=== PATIENT | female | born 1985 | race Caucasian/White ===

== ENCOUNTER 2016-03-07 21:54 | Observation (INO) ==
[2016-03-07 22:51] LABS: Bilirubin,Urine Negative (Negative); Blood,Urine Negative (Negative); Clarity,Urine Cloudy (Clear); Color,Urine Yellow (Yellow); Glucose,Urine (UA) 250 mg/dL (Normal); Ketones,Urine Negative (Negative); Leukocyte Esterase,Urine Trace (Negative); Nitrite,Urine Negative (Negative); Protein,Urine Negative (Neg-Trace); Specific Gravity,Urine 1.016 (1.010-1.025); Urobilinogen,Urine Normal (Normal)
[2016-03-07 23:09] LABS: Squamous Epithelial Cell,Urine Many per lpf (None-Few)
[2016-03-07 23:10] LABS: Bacteria,Urine Moderate per hpf (None-Few)
--- NOTE | 2016-03-12 18:29 | OB/GYN Progress Note ---
Date of Encounter: 03/07/16 Time of Encounter: 22:10 - Assessment and Plan (1) 34 weeks gestation of Status: Acute (2) Abdominal pain affecting Status: Acute Pt presented with c/o possible uc's and abd pain. No uc's on tocos and no cervical change. Subjective - Subjective Principal diagnosis: cramping. Interval history: Pt is at 34w1d with c/o cramps, no vb and no lof. Objective - Exam FHR: category 1 Cervical dilation: cl Cervix effacement: 50 station: -2 - Labs Labs: Abnormal lab results Urine Clarity Cloudy (Clear) A 03/07/16 22:25 Urine Glucose (UA) 250 mg/dL (Normal) H 03/07/16 22:25 Ur Leukocyte Esterase Trace (Negative) H 03/07/16 22:25 Urine Microscopic WBC 3-5 per hpf (0-3) H 03/07/16 22:25 Ur Squamous Epith Cells Many per lpf (None-Few) H 03/07/16 22:25 Urine Bacteria Moderate per hpf (None-Few) H 03/07/16 22:25 Ur Culture Indicated? YES (NO) A 03/07/16 22:25
== END 2016-03-07 23:55 | disposition home or self-care (01) ==
LOC: 1NENULAB
PROVIDERS: ADMIT Obstetrics & Gynecology; ATTEND Obstetrics & Gynecology

== ENCOUNTER 2018-06-05 09:30 | Inpatient (IN) ==
[2018-06-05] MEDS ORDERED: Ringers Solution, Lactated 1,000 ML IVC SCH (10:45)
[2018-06-05] MEDS ORDERED: Metoclopramide 10 MG/2 ML VIAL IVP PRN (10:45)
[2018-06-05] MEDS ORDERED: Oxytocin 20 units/ LR 1000 mL 20 UNIT/1,000 ML BAG IVC SCH ×2 (10:45→19:34)
[2018-06-05] MEDS ORDERED: Naloxone 0.4 MG/ML INJ IVP PRN (10:45)
[2018-06-05] MEDS ORDERED: Ondansetron 4 MG/2 ML VIAL IVP PRN (10:45)
[2018-06-05] MEDS ORDERED: *HR* Nalbuphine 10 MG/ML AMPUL IVP PRN (10:45)
[2018-06-05] MEDS ORDERED: Famotidine 20 MG/2 ML VIAL IVP PRN (10:45)
--- NOTE | 2018-06-05 11:00 | OB/GYN History & Physical ---
Date of Encounter: 06/05/18 Time of Encounter: 10:53 Assessment and Plan (1) 39 weeks gestation of Current visit: Yes Status: Acute Admit to Labor and Delivery GBS- Start Pitocin for labor induction Consider AROM for augmentation May have nubain/epidiural per request Anticipate vaginal delivery POC per consult with Dr. Mason History of Present Illness Chief complaint: IOL HPI: Ms. Gomes is a 32 year old female at 39 6/7 weeks gestation presents to L&D for elective induction of labor after this AM. She was sent from the office by Dr Mason. Reports positive movement. Denies ctx, bleeding, leaking of fluid, [place], or vision changes. Uncomplicated to date. H/o fibromyalgia. H/o placental abruption in 2005 at 122 weeks. Labs to date: GBS- O+ RPR NR HIV NR Rubella immune Varicella immune Hep B NR Past Med Surg Social Fam HX - Past Medical History Medical history: migraine Additional medical history: Pulmonary valve stenosis. Psychiatric history: anxiety, depression, PTSD - Past Surgical History Surgical History: other Additional surgical history: 3 eye surgeries as a child. D and C 2005. Broken nose - Social History Smoking Status: Never smoker Smokeless Tobacco Status: No Alcohol use: none Drug use: none - Family History Father Adopted: [place]: Denies any family history Living Status: Still Living Hx Family Cardiac Disorders: Yes (hypertension) Mother Adopted: [place]: Denies family history Family Member Ethnicity: Non- Hx Family Cardiac Disorders: Yes Hx Family Cancer: Yes (skin cancer) Obstetrical History - Pregnancies : 9 Para: 6 Term: 5 : 1 Ab's: 2 Livin Medications and Allergies RX: Gabapentin [Neurontin] 800 mg TID 03/29/17 [History] Tramadol HCl 50 mg PO BID 06/05/18 [History] Allergy/AdvReac Type Severity Reaction Status Date / Time Amoxicillin Allergy Hives Verified 06/17/17 10:33 Review of System OB All systems PM: reviewed and no additional remarkable complaints except as stated Exam - Constitutional Constitutional: well developed, well nourished, no acute distress, average body habitus - HEENT HEENT: Normocephaly, Mucus Membranes Moist - Neck Neck exam: full ROM, normal inspection - Lungs Respiratory exam: CTAB - Cardiovascular Cardiovascular exam: RRR, +S1, +S2 - Breasts Breast: bilateral: normal - Abdomen Abdomen: Present: bowel sounds normal, gravid, non tender - Extremities Extremities exam: full ROM, normal inspection, radial pulses palpable and sym metrical Deep Tendon Reflex Grade: 2+ Normal - Vagina Vagina: Present: normal moisture - Cervix Dilation: 3 (3-4 per sve in office) Effacement: 80 Station: -3 - Uterus Uterus exam: Present: normal size, normal contour - Anus/Rectum Anus/Rectum: Present: normal perianal skin Results Result Diagrams: 06/05/18 10:30 All other labs normal. - VTE Reasons for not Prescribing Prophylaxis: Treatment not Indicated - Low risk for VTE
[2018-06-05 11:04] LABS: Basophils % 0.2 %; Eosinophils % 0.3 %; Hematocrit 30.9 % (35.3-44.9); Hemoglobin 9.9 g/dL (11.5-15.4); Immature Granulocytes % 0.3 % (0-4); Lymphocytes # 1.1 K/mcL (0.6-4.6); Lymphocytes % 18.3 %; Mean Corpuscular Volume 74.8 fL (83.0-100.0); Mean Platelet Volume 9.5 fL (9.4-12.4); Monocytes # 0.4 K/mcL (0.0-1.3); Monocytes % 5.7 %; Neutrophils # 4.7 K/mcL (1.6-8.9); Platelet Count 234 K/mcL (140-400); Red Blood Count 4.13 M/mcL (3.82-4.97); Red Cell Distribution Width 16.7 % (11.5-14.5); Segmented Neutrophils % 75.2 %
[2018-06-05 11:20] LABS: Amphetamine Screen,Urine Negative ng/mL (Cutoff=1000); Barbiturate Screen,Urine Negative ng/mL (Cutoff=200); Benzodiazepines Screen,Urine Negative ng/mL (Cutoff=200); Cannabinoid Screen,Urine Negative ng/mL (Cutoff = 50); Cocaine Screen,Urine Negative ng/mL (Cutoff= 300); Opiate Screen,Urine Negative ng/mL (Cutoff=300); Phencyclidine Screen,Urine Negative ng/mL (Cutoff=25)
--- NOTE | 2018-06-05 13:14 | Anesthesia Evaluation PreOp ---
Date of Encounter: 06/05/18 Time of Encounter: 13:11 - Past History Planned Operation: victorina Cardiac History: Other (States that she has been followed at [facility] for a murmur from her pulmonary valve. Unbale to detect at this tiime.) Pulmonary History: Denies Any Significant HX LOADING INSPECTOR History: Denies Any Significant HX Other Medical History: Denies Any Significant HX Anesthesia History: No Prior Anesthetic Complications, Past Anesthesia (eye, nose, d&C) : Yes (39+6 ) Test: Positive Alcohol Use: none Drug use: none Medications and Allergies Gabapentin [Neurontin] 800 mg TID 03/29/17 [History] Tramadol HCl 50 mg PO BID 06/05/18 [History] Allergy/AdvReac Type Severity Reaction Status Date / Time Amoxicillin Allergy Hives Verified 06/17/17 10:33 - Meds/Allergy Pre-op Review Medications Reviewed: Yes Allergies Reviewed: Yes Beta Blockers on Current Med List: No Anesthesia Results - Labs 06/05/18 10:30 Anesthesia Exam O2 Sat Height 1.75 m Height 1.75 m Weight 91.9 kg Weight 91.9 kg Height: 69 Weight: 91 - HEENT Pupil (Motor): Pupils equal Mallampati: II Teeth: Normal Oral Opening: Greater than 3 - LOADING INSPECTOR LOC: Oriented LOADING INSPECTOR Motor: Normal RUE, Normal LUE, Normal RLE, Normal LLE, Normal Face LOADING INSPECTOR Sensory: Normal: RUE, LUE, RLE, LLE, Face - Cardiac Rhythm: Regular Murmur: None JVD: No Carotid Bruit: No - Pulmonary Breath Sounds: bilateral Clear Respiratory Effort: Symmetrical Anesthesia Assess/Plan ASA Score: 2 Level of consciousness: Cooperative Anesthetic Plan: Epidural Monitoring Plan: Standard Monitors
[2018-06-05] MEDS ORDERED: *HR* FentaNYL (PF) 100 MCG/2 ML VIAL ONE (13:49)
[2018-06-05] MEDS ORDERED: *HR* Ropivacaine/PF 0.2% 20 ML VIAL ONE (13:49)
[2018-06-05] MEDS ORDERED: Epidural Premix (fent/bupiv) 110 ML EP ONE (13:49)
[2018-06-05] MEDS ORDERED: Lidocaine -MPF 1% 5 ML AMPUL ONE (13:49)
[2018-06-05] MEDS ORDERED: Epidural Premix (fent/bupiv) 110 ML EP SCH (14:15)
--- NOTE | 2018-06-05 14:18 | Anesthesia Procedures ---
Addendum entered and electronically signed by Trey Murry CRNA 06/05/18 20:39: Delivery Date: 06/05/18 Delivery Time: 16:25 Addendum entered and electronically signed by Trey Murry CRNA 06/05/18 14:20: procedure time [id number] Original Note: Date of Encounter: 06/05/18 Time of Encounter: 14:16 Procedures: Anesthesia - Epidural/Spinal Patient ID/Chart reviewed: Yes Patient examined: Yes OB Eval: Gestational age: 39 OB Eval: : 8 OB Eval: Hx Para: 6 OB Eval: Contractions: Non-stressed pattern Consent Obtained: Yes Supplemental Oxygen: None/Room Air Site Prep: Aseptic Technique Patient position: upright Local Anesthetic: Lidocaine 1% Touhy Needle Gauge: 18 Touhy Needle Depth (cm): 6 Catheter Depth at Skin (cm): 12 Test Dose (1.5% Lido + Epi): Volume given (mls): 3 Test Dose Result: Negative Loading Dose: Fentanyl (mcg): 100 Loading Dose: Other: 6ml 0.2% ropivicaine Loading Dose Administered: Thru Touhy Needle Infusion Med: 0.125% Bupivacaine w/ 2 mcg/ml Fentanyl Infusion Rate (mls/hr): [address]: Tegaderm Interspace Used: L3-L4
[2018-06-05] MEDS ORDERED: EPHEDrine 50 MG/ML VIAL ONE (14:30)
--- NOTE | 2018-06-05 14:47 | OB Labor Progress Note ---
Date of Encounter: 06/05/18 Time of Encounter: 14:44 Labor Progress Note - Subjective Subjective: Patient resting comfortably after epidural placement - Vital Signs Vital Signs: VSS - Cervix Cervix: 5-6/70/-2 BBOW - Heart Tones Heart Tones: 135 Cat 1 tracing - [place]: Contractions every 2-3 minutes - Interventions Interventions: AROM for small amount of clear fluid; patient and fetus tolerated well. - Plan Plan: Continue routine labor management GBS negative Titrate pitocin for adequate labor contractions Anticipate vaginal delivery POC per consult with Dr Mason
--- NOTE | 2018-06-05 16:52 | OB/GYN Procedure Note ---
Delivery - Delivery Date: 06/05/18 Provider: Maya Mason Intrapartum events: none Delivery induction: oxytocin Delivery augmentation: rupture of membranes Delivery monitor: external FHT Anesthesia: epidural Quantitated Blood Loss: 200 - (s) Infant A Delivery Date: 06/05/18 Delivery Time: 16:25 Presentation: vertex Position: WILDER Route of delivery: Gender: Male Viability: Viable at 1 minute: 9 at 5 mins: 9 Shoulder Dystocia: not encountered Specimens collected: cord blood Placenta: spontaneous Cord: nuchal cord, nuchal reduced - Repair Episiotomy: none Laceration Description: Labial - Complications Delivery complications: none Delivery comments: Spontaneous vaginal delivery of a viable male with left occiput posterior presentation over an intact perineum without difficulty. Nuchal cord 1. cord reduced without difficulty. Apgars were 9 and 9 at one and 5 minutes respectively. Placenta was delivered spontaneously. Cord blood was collected. Small right labial laceration was noted. 2 interrupted sutures were placed. No complications. Uterus was explored. Minimal bleeding noted. estimated blood loss 200 mL. Baby was placed on maternal abdomen for kangaroo care. Sponge lap needle and all instrument counts were assured to be correct after the procedure.
[2018-06-05] MEDS ORDERED: Oxytocin 20 units/ LR 1000 mL 20 UNIT/1,000 ML BAG IVC ONE (19:34)
[2018-06-05] MEDS: traMADol 50 MG TABLET PO PRN (20:24)
[2018-06-05] MEDS: Ibuprofen 600 MG TABLET PO PRN (21:29)
[2018-06-06] MEDS: Acetaminophen 325 MG TABLET PO PRN ×3 (02:10→20:12)
[2018-06-06] MEDS: Ibuprofen 600 MG TABLET PO PRN ×3 (04:04→15:57)
[2018-06-06] MEDS: Prenatal Vit/FA 1 EACH TABLET PO SCH (07:40)
--- NOTE | 2018-06-06 09:12 | OB/GYN Progress Note ---
Date of Encounter: 06/06/18 Time of Encounter: 09:09 - Assessment and Plan (1) Vaginal delivery Current Visit: Yes Status: Acute Patient offered to be discharged to guest and declined Continue routine care Anticipate discharge tomorrow (2) anemia Current Visit: Yes Status: Acute Continue iron supplementation daily (3) Breast feeding status of mother Current Visit: Yes Status: Acute when necessary Subjective - Subjective Principal diagnosis: S/P Interval history: Feeling well. Out of bed without dizziness. Some perineal discomfort-using ice pack. Cramping minimal, using ibuprofen. every 2-3 hours. Some nipple soreness. Voiding without difficulty. Passing flatus, no BM yet. Tolerating regular diet. Patient reports: appetite normal, voiding normally, pain well controlled, ambulating normally [place]: doing well, nursing well Objective - Latest Vital Signs Latest vital signs: Vital Signs Temp Pulse Resp BP Pulse Ox 06/06/18 07:59 97.4 F L 98 18 123/85 98 06/06/18 03:45 97.9 F 89 16 132/82 97 06/06/18 00:30 98.4 F 98 16 118/72 98 06/05/18 22:22 97.8 F 107 16 136/78 97 06/05/18 21:00 98.4 F 104 16 137/78 99 06/05/18 19:50 98.1 F 81 16 138/77 99 Intake and Output 06/05/18 06/06/18 06/06/18 23:59 07:59 15:59 Intake Total 850 / 850 700 / 700 Output Total 750 / 750 750 / 750 Balance 100 / 100 -50 / -50 Intake: Oral 850 / 850 700 / 700 Output: Urine 750 / 750 750 / 750 Other: Weight 87.679 kg Patient Weight 06/06/18 23:59 Weight 87.679 kg - Exam Lungs: bilateral: normal Chest: Normal S1, Normal S2 Extremities: Present: normal Abdomen: Present: normal appearance, soft Uterus: Present: firm Uterus Position: At Umbilicus, Midline - Labs Labs: Laboratory Results - last 24 hr 06/05/18 06/05/18 10:30 10:30 WBC 6.2 RBC 4.13 Hgb 9.9 L Hct 30.9 L MCV 74.8 L MCH 24.0 L MCHC 32.0 RDW 16.7 H Plt Count 234 MPV 9.5 Immature Gran % 0.3 Seg Neutrophils % 75.2 Lymphocytes % 18.3 Monocytes % 5.7 Eosinophils % 0.3 Basophils % 0.2 Neutrophils # 4.7 Lymphocytes # 1.1 Monocytes # 0.4 Eosinophils # 0.0 Basophils # 0.0 Urine Opiates Screen Negative Ur Barbiturates Screen Negative Ur Phencyclidine Scrn Negative Ur Amphetamines Screen Negative U Benzodiazepines Scrn Negative Urine Cocaine Screen Negative U Marijuana (THC) Screen Negative Ur Drug Screen Interp See Below
[2018-06-06 09:42] LABS: Hematocrit 27.5 % (35.3-44.9); Mean Corpuscular HGB Conc 32.7 g/dL (31.6-35.5); Mean Corpuscular Volume 73.3 fL (83.0-100.0); Mean Platelet Volume 9.6 fL (9.4-12.4); Platelet Count 204 K/mcL (140-400); Red Blood Count 3.75 M/mcL (3.82-4.97); Red Cell Distribution Width 17.2 % (11.5-14.5)
[2018-06-06] MEDS: traMADol 50 MG TABLET PO PRN ×2 (12:03→21:43)
[2018-06-07] MEDS: Ibuprofen 600 MG TABLET PO PRN ×2 (04:34→09:52)
[2018-06-07] MEDS: Acetaminophen 325 MG TABLET PO PRN (06:44)
[2018-06-07] MEDS: Prenatal Vit/FA 1 EACH TABLET PO SCH (08:36)
[2018-06-07 08:50] VITALS: BP 129/76
[2018-06-07] MEDS: traMADol 50 MG TABLET PO PRN (09:52)
--- NOTE | 2018-06-07 10:06 | Discharge Summary ---
Date of Encounter: 06/07/18 Time of Encounter: 09:53 - Discharge Diagnosis (1) Obstetric labial laceration, delivered, current hospitalization Priority: Secondary Status: Acute (2) Vaginal delivery Priority: Primary Status: Acute Comments: Patient meeting day two milestones. Pain well-controlled with prescribed medications. Voiding without difficulty, tolerating regular diet, light lochia. No bowel movement yet. Patient still with complaint of lingering neck and upper back pain. Anticipate discharge today (3) anemia Priority: Secondary Status: Acute Comments: Continue daily iron (4) Breast feeding status of mother Priority: Secondary Status: Acute Comments: support as needed. Breast pump prescription provided. - Discharge Medications Prescriptions: New Acetaminophen [Tylenol] 650 mg PO Q6HR PRN tablet PRN Reason: Mild Pain Ibuprofen [Motrin] 600 mg PO Q6HR PRN #60 tablet PRN Reason: Cramping Cyclobenzaprine [Flexeril] 10 mg PO TID PRN #21 tablet PRN Reason: Spasms Ferrous Sulfate 325 mg PO DAILY #30 tablet Docusate [Colace] 100 mg PO BID capsule Continue Gabapentin [Neurontin] 800 mg TID Tramadol HCl 50 mg PO BID Home Medications: Gabapentin [Neurontin] 800 mg TID 03/29/17 [History] Tramadol HCl 50 mg PO BID 06/05/18 [History] Acetaminophen [Tylenol] 650 mg PO Q6HR PRN tablet 06/07/18 [Rx] Cyclobenzaprine [Flexeril] 10 mg PO TID PRN #21 tablet 06/07/18 [Rx] Docusate [Colace] 100 mg PO BID capsule 06/07/18 [Rx] Ferrous Sulfate 325 mg PO DAILY #30 tablet 06/07/18 [Rx] Ibuprofen [Motrin] 600 mg PO Q6HR PRN #60 tablet 06/07/18 [Rx] Allergies/Adverse Reactions: 3 Allergy/AdvReac Type Severity Reaction Status Date / Time Amoxicillin Allergy Hives Verified 06/17/17 10:33 Data Procedures and tests throughout hospitalization: Laboratory Tests 06/05/18 06/05/18 06/06/18 10:30 10:30 09:21 WBC 6.2 7.3 RBC 4.13 3.75 L Hgb 9.9 L 9.0 L Hct 30.9 L 27.5 L MCV 74.8 L 73.3 L MCH 24.0 L 24.0 L MCHC 32.0 32.7 RDW 16.7 H 17.2 H Plt Count 234 204 MPV 9.5 9.6 Immature Gran % 0.3 Seg Neutrophils % 75.2 Lymphocytes % 18.3 Monocytes % 5.7 Eosinophils % 0.3 Basophils % 0.2 Neutrophils # 4.7 Lymphocytes # 1.1 Monocytes # 0.4 Eosinophils # 0.0 Basophils # 0.0 Urine Opiates Screen Negative Ur Barbiturates Screen Negative Ur Phencyclidine Scrn Negative Ur Amphetamines Screen Negative U Benzodiazepines Scrn Negative Urine Cocaine Screen Negative U Marijuana (THC) Screen Negative Ur Drug Screen Interp See Below Date of admission: 06/05/18 09:30 Primary care physician: Savannah Duffy DO Consults: 06/05/18 19:34 Consult to Special Equipment Technician [CONS] Routine Comment: Vaginal delivery, consult needed Discharging clinician: Jessica Alonso Anticipated date of discharge: 06/07/18 - Patient Status Disposition: Home, Self-Care Condition: Good Functional capacity at discharge: independent ambulation Overall status at discharge: patient is progressing back to baseline - Discharge Instructions Follow Up With: Savannah Duffy DO [Primary Care Provider] - - Diet and Activity Activity: resume usual activities as tolerated Diet: regular diet Hospital Course Reason for admission: induction of labor Delivery: Episiotomy: none Laceration: other (labial) Other procedures: none complications: none Discharge diagnosis: IUP at term delivered [place] baby: male Hospital course: Delivery Date: 06/05/18 Provider: Maya Mason Intrapartum events: none Delivery induction: oxytocin Delivery augmentation: rupture of membranes Delivery monitor: external FHT Anesthesia: epidural Quantitated Blood Loss: 200 - (s) Infant A Delivery Date: 06/05/18 Infant Delivery Time: 16:25 Presentation: vertex Position: WILDER Route of delivery: Gender: Male Viability: Viable at 1 minute: 9 at 5 mins: 9 Shoulder Dystocia: not encountered Specimens collected: cord blood Placenta: spontaneous Cord: nuchal cord, nuchal reduced - Repair Episiotomy: none Laceration Description: Labial - Complications Delivery complications: none Delivery comments: Spontaneous vaginal delivery of a viable male with left occiput posterior presentation over an intact perineum without difficulty. Nuchal cord 1. cord reduced without difficulty. Apgars were 9 and 9 at one and 5 minutes respectively. Placenta was delivered spontaneously. Cord blood was collected. Small right labial laceration was noted. 2 interrupted sutures were placed. No complications. Uterus was explored. Minimal bleeding noted. estimated blood loss 200 mL. Baby was placed on maternal abdomen for kangaroo care. Sponge lap needle and all instrument counts were assured to be correct after the procedure. Time Attestation: Total time spent providing and/or coordinating discharge services: Time Spent: Less than 30 minutes Exam - Constitutional Vitals: Temp Pulse Resp BP Pulse Ox 98.4 F 72 14 129/76 99 06/07/18 08:49 06/07/18 08:49 06/07/18 08:49 06/07/18 08:49 06/07/18 08:49 General appearance IM: A&O X 3, pleasant, answers questions appropriately - Respiratory Respiratory exam: Present: CTAB - Cardiovascular Cardiovascular exam IM: Present: RRR, +S1, +S2 - GI/Abdominal GI/Abdominal exam IM: normal bowel sounds, soft - Rectal Rectal exam: deferred - External exam: normal external exam Uterine Tone: Firm Uterus Position: At Umbilicus, Midline - Extremities Exam Extremities exam IM: Present: full ROM, normal capillary refill, normal inspection - Neurological Exam Neurological exam: alert, normal gait, oriented X3
--- NOTE | 2018-06-07 13:43 | Anesthesia Progress Note ---
Date of Encounter: 06/07/18 Time of Encounter: 13:39 Anesthesia Note - Note Note: Asked by Jessica Alonso CNM to evaluate patient for possible PDPH. Upon entry into patient room, patient was sitting on edge of bed in no obvious distress. Also, at different points during the H&P, the patient would stand and walk around with no apparent difficulty. Patient describes only pain in an occipital distribution with radiation to neck. Also denies any other associated S&S such as photobia, tinnitus, or nausea. Given the lack of a postural element to her neck pain and the lack of any evidence in the epidural procedure note indicating difficulty with placement, a PDPH is very unlikely. Assessment findings shared with [email or web address] primary RN. 06/07/18 13:39
== END 2018-06-07 13:29 | disposition home or self-care (01) | DRG 560 ==
LOC: 1NENULAB 09:30 → 1NENUOBS 19:57
PROVIDERS: ADMIT Obstetrics & Gynecology; ATTEND Obstetrics & Gynecology